=== PATIENT | female | born 2000 | race Hispanic/Latino ===

== ENCOUNTER 2020-10-30 18:15 | Emergency (ER) | payer SELFPAY ==
[~2020-10-30] VITALS: Ht 170.2 cm; Wt 85.7 kg
[2020-10-30] MEDS ORDERED: COLACE100 MG PO (19:11)
[2020-10-30] MEDS ORDERED: MAGNESIUM CITR296 ML PO (19:14)
== END 2020-10-30 20:17 | disposition home or self-care (01) ==
LOC: ER 18:20
DX: O26.90 Pregnancy related conditions, unspecified, unspecified trimester (principal); K59.00 Constipation, unspecified
CPT/HCPCS: 99283

== ENCOUNTER 2020-12-09 20:56 | Emergency (ER) | payer OTHER ==
[~2020-12-09] VITALS: Ht 170.2 cm; Wt 85.7 kg
[~2020-12-09 20:56] MED LIST: COLACE100 MG PO; MAGNESIUM CITR296 ML PO
[2020-12-09 21:36] LABS: BASOPHILS % 0.4 % (0.0-1.0); EOSINOPHILS # (AUTO) 0.1 (0.0-0.4); EOSINOPHILS % 0.6 % (0.0-6.0); HEMATOCRIT 35.7 % (34.2-44.1); HEMOGLOBIN 11.7 g/dL (12.0-16.0); LYMPHOCYTES # (AUTO) 2.5 (1.0-3.2); LYMPHOCYTES % 23.2 % (18.0-39.1); MEAN CORPUSCULAR HEMOGLOBIN 28.9 pg (28-32); MEAN CORPUSCULAR HGB CONC 32.8 g/dL (31-35); MEAN CORPUSCULAR VOLUME 88.1 fL (81-99); MONOCYTES # (AUTO) 0.9 (0.2-0.8); MONOCYTES % 8.2 % (4.4-11.3); NEUTROPHILS # (AUTO) 7.2 (2.1-6.9); PLATELET COUNT 285 x10e3/uL (140-360); RED BLOOD COUNT 4.05 x10e6/uL (3.6-5.1); RED CELL DISTRIBUTION WIDTH 16.7 % (11.7-14.4)
[2020-12-09 21:55] LABS: ALBUMIN 3.9 g/dL (3.5-5.0); ALBUMIN/GLOBULIN RATIO 1.1 (0.8-2.0); ANION GAP 13.6 mmol/L (8-16); CALCIUM 10.7 mg/dL (8.4-10.2); CREATININE, SERUM 0.62 mg/dL (0.57-1.11); POTASSIUM 3.6 mmol/L (3.5-5.1)
[2020-12-09 22:53] LABS: CLARITY,URINE SL CLOUDY (CLEAR); COLOR,URINE YELLOW (YELLOW); KETONES,URINE TRACE (NEGATIVE); LEUKOCYTE ESTERASE ,URINE NEGATIVE (NEGATIVE); NITRITE,URINE NEGATIVE (NEGATIVE); PROTEIN,URINE DIPSTICK NEGATIVE (NEGATIVE); URINE UROBILINOGEN 0.2 mg/dL (0.2 - 1)
[2020-12-09 22:59] LABS: BACTERIA,URINE FEW /HPF; EPITHELIAL CELLS,URINE MANY /LPF; WBC,URINE (MAN) 0-5 /HPF (0-5)
[2020-12-09] MEDS ORDERED: PRENATAL 19 CH1 EACH PO (23:10)
[2020-12-09 23:42] VITALS: BP 103/63
== END 2020-12-09 23:48 | disposition home or self-care (01) ==
LOC: ER 21:00
DX: O20.0 Threatened abortion (principal)
CPT/HCPCS: 36415; 76801; 80053; 81001; 84702; 85025; 99283

== ENCOUNTER 2021-03-08 21:14 | Emergency (ER) | payer OTHER ==
[~2021-03-08] VITALS: Ht 170.2 cm; Wt 85.7 kg
[~2021-03-08 21:14] MED LIST changes: +PRENATAL 19 CH1 EACH PO
== END 2021-03-08 22:56 | disposition home or self-care (01) ==
LOC: ER 21:37
DX: S90.121A Contusion of right lesser toe(s) without damage to nail, initial encounter (principal); W22.09XA Striking against other stationary object, initial encounter; Y93.01 Activity, walking, marching and hiking; Y92.008 Other place in unspecified non-institutional (private) residence as the place of occurrence of the external cause
CPT/HCPCS: 99283